=== PATIENT | male | born 1960 | race Caucasian/White ===

== ENCOUNTER → 2017-09-10 | Outpatient (CLI) | payer OTHER ==
[~2017-09-10] MED LIST: CRESTOR20 MG PO; DEXILANT30 MG PO; IOPAMIDOL 370 MG/ML 200 ML INFUS..BTL INJ ONE; SODIUM CHLORIDE 0.9% 50ML 50 ML ONE
--- NOTE | 2017-09-10 18:18 | Diagnostic Imaging Report ---
EXAM: CT Abdomen and Pelvis WITH contrast INDICATION: \[id number] \S\[id number] \S\LT LOWER ABD PAIN; SUSPECT INGUINAL COMPARISON: None. TECHNIQUE: Abdomen and pelvis were scanned utilizing a multidetector helical scanner from the lung base to the pubic symphysis after administration of IV contrast. Coronal and sagittal reformations were obtained. Routine protocol was performed. Scan was performed when during portal venous phase. IV CONTRAST: 100 mL of Isovue-370 ORAL CONTRAST: Water COMPLICATIONS: None RADIATION DOSE: Total DLP: 496.22 mGy*cm Estimated effective dose: (DLP x 0.015 x size factor) mSv CTDIvol has been reviewed. It is below the limits set by the Radiation Protocol Committee (RPC). FINDINGS: LINES and TUBES: None. LOWER THORAX: Unremarkable HEPATOBILIARY: No focal hepatic lesions. No biliary ductal dilation. GALLBLADDER: Cholecystectomy. SPLEEN: No splenomegaly. PANCREAS: No focal masses or ductal dilatation. ADRENALS: 1.4 cm right adrenal nodule. No left adrenal nodule. KIDNEYS/URETERS: Kidneys enhance symmetrically. No hydronephrosis. No cystic or solid mass lesions. No stones. GI TRACT: No abnormal distention, wall thickening, or evidence of bowel obstruction. Appendix is not visualized. PELVIC ORGANS/BLADDER: Unremarkable. LYMPH NODES: No lymphadenopathy. VESSELS: Unremarkable. PERITONEUM / RETROPERITONEUM: No free air or fluid. Small left lower quadrant fat density lesion measuring 1.1 cm with thin high density rim (series 2, image 54 are series 301, image 39). BONES: Unremarkable. SOFT TISSUES: Unremarkable. IMPRESSION: Small left lower quadrant fat density lesion measuring 1.1 cm with thin high density rim, suggestive of Epiploic appendagitis. Signed by: Dr. Rc Trevizo MD on 09/10/2017 6:14 PM
== END ==
LOC: CT 16:27
DX: R10.32 Left lower quadrant pain (principal)
CPT/HCPCS: 74177; Q9967

== ENCOUNTER → 2018-03-22 | Day surgery (SDC) | payer OTHER ==
[~2018-03-22] MED LIST changes: +CRESTOR10 MG PO; +FENTANYL CITRATE/PF 100MCG/2 ML INJ ONE; +HYOSCYAMINE SULFATE 0.5 MG/ML AMP ONE; -IOPAMIDOL 370 MG/ML 200 ML INFUS..BTL INJ ONE; +MIDAZOLAM HCL 2 MG/2 ML VIAL ONE; +NEXIUM OTC PO; +PROPOFOL IV EMULSION 10 MG/ML 50 ML VIAL ONE; -SODIUM CHLORIDE 0.9% 50ML 50 ML ONE
--- NOTE | 2018-03-22 14:44 | Operative Report ---
DATE OF PROCEDURE: March 22, 2018 REFERRING PHYSICIAN: Dr. Iain Chung PROCEDURES PERFORMED 1. Esophagogastroduodenoscopy with biopsies and esophageal dilatation. 2. Colonoscopy with polypectomy and biopsy. INDICATIONS FOR EGD: Dysphagia to solids and heartburn. INDICATIONS FOR COLONOSCOPY: Colorectal cancer screening and sister with colon cancer. MEDICATION: Patient was done under MAC. Please see anesthesiologist's note. PROCEDURE: With the patient in the left lateral decubitus position, the flexible fiberoptic Olympus gastroscope was introduced into the esophagus under direct visualization without any difficulty. A Schatzki's ring was noted in the distal esophagus. That was dilated to size 52-Yi Rodarte. The scope was then advanced with ease into the stomach traversing a small hiatal hernia. Mucosa overlying the antrum and the body revealed some patchy erythema and low-grade edema, and mild to moderate edema. Biopsies were obtained and sent to stain for H. pylori. Hyperplastic appearing polyps were noted in the body of the stomach and some were partially excised with cold biopsy forceps. The pylorus was of normal contour and shape. It was intubated with ease. The scope was advanced all the way to the 2nd portion of the duodenum. The scope was then withdrawn slowly. Mucosa overlying the proximal 2nd portion and the duodenal bulb appeared to be within normal limits. The scope was then withdrawn back into the stomach and retroflexed. The mucosa overlying the fundus and the cardia appeared to be within normal limits. The scope was then straightened out. The stomach was decompressed. The scope was subsequently withdrawn. Patient tolerated the procedure well. IMPRESSION 1. Distal esophagitis, mild. 2. Schatzki's ring, dilated to a size 52-Yi Rodarte. 3. Small hiatal hernia. 4. Gastritis, biopsied. Biopsies sent to stain for Helicobacter pylori. 5. Gastric polyps, some partially excised with the cold biopsy forceps. PLAN: Follow up histology. Initiate Protonix 40 mg 1 p.o. q.a.m. a.c. Patient was then turned around. After adequate lubrication of the anal canal, a flexible fiberoptic Olympus colonoscope was inserted into the rectum with ease and advanced all the way to the cecum. Mucosa overlying the cecum appeared to be within normal limits. There were some scattered diverticular disease noted in the colon. One polyp was snared from the ascending colon. One polyp was snared from the descending colon. There is a mild segmental colitis noted in the descending colon and biopsies were obtained. The sigmoid other than for diverticular disease appeared to be within normal limits. The scope was then retroflexed into the distal rectum and small internal hemorrhoids were noted, none of which was actively bleeding. The scope was then straightened out. It was subsequently withdrawn. Patient tolerated the procedure well. IMPRESSION 1. Ascending colon polyp, snared. 2. Diverticulosis. 3. Descending colon polyp, snared. 4. Mild segmental colitis, descending colon. 5. Internal hemorrhoids, none actively bleeding. PLAN: Follow up histology. Initiate high-fiber and low-fat diet. Initiate high-fiber supplement. Patient will need a followup colonoscopy in 2-3 years. Job#: [id number] RI cc:IAIN CHUNG MD
== END | disposition home or self-care (01) ==
LOC: OR 11:01
PROVIDERS: ATTEND Internal Medicine Gastroenterology
DX: Z12.11 Encounter for screening for malignant neoplasm of colon (principal); D12.2 Benign neoplasm of ascending colon; D12.4 Benign neoplasm of descending colon; K31.7 Polyp of stomach and duodenum; K29.50 Unspecified chronic gastritis without bleeding; K22.2 Esophageal obstruction; K20.9 Esophagitis, unspecified; K21.9 Gastro-esophageal reflux disease without esophagitis; K44.9 Diaphragmatic hernia without obstruction or gangrene; K50.10 Crohn's disease of large intestine without complications; K57.30 Diverticulosis of large intestine without perforation or abscess without bleeding; K64.8 Other hemorrhoids; Z01.810 Encounter for preprocedural cardiovascular examination; Z80.0 Family history of malignant neoplasm of digestive organs
CPT/HCPCS: 43239; 43450; 45380; 45385; 93005; J1980; J2250; 45378; 45384

== ENCOUNTER → 2018-12-27 | Outpatient (CLI) | payer OTHER ==
[~2018-12-27] MED LIST changes: -FENTANYL CITRATE/PF 100MCG/2 ML INJ ONE; -HYOSCYAMINE SULFATE 0.5 MG/ML AMP ONE; -MIDAZOLAM HCL 2 MG/2 ML VIAL ONE; -PROPOFOL IV EMULSION 10 MG/ML 50 ML VIAL ONE
--- NOTE | 2018-12-27 13:15 | Diagnostic Imaging Report ---
Exam: Left ankle series; 3 views History: Pain Comparison: None available Findings: Ankle mortise is intact. There is no fracture identified. Spurring of the calcaneus at the insertion of the plantar fascia and the Achilles tendon is mild. Impression: Mild calcaneal spurring. Signed by: Dr. Wilfrido Alex DO on 12/27/2018 1:12 PM
--- NOTE | 2018-12-27 14:12 | Diagnostic Imaging Report ---
Exam: Left foot series; 4 views History: Pain Comparison: None available Findings: Spurring of the calcaneus is present. The oblique view of the foot suggests the possibility of a lytic lucency involving the neck of the calcaneus. MRI of the foot with and without contrast is suggested for further evaluation. Impression: Possible lytic process involving the calcaneus. Signed by: Dr. Wilfrido Alex DO on 12/27/2018 2:08 PM
== END ==
LOC: RAD 11:21
DX: M25.572 Pain in left ankle and joints of left foot (principal); M77.32 Calcaneal spur, left foot

== ENCOUNTER → 2019-01-10 | Outpatient (CLI) | payer OTHER ==
--- NOTE | 2019-01-10 10:19 | Diagnostic Imaging Report ---
TECHNIQUE: Magnetic resonance imaging of the LEFT foot (hindfoot) was performed WITHOUT injected contrast. HISTORY: Heal pain, lateral side, runner, 6 months, query stress injury COMPARISON: None available. DISCUSSION: Bone: No focal or infiltrative bone marrow replacing abnormality. No acute fracture or osteonecrosis. Multifocal subchondral reactive bone marrow edema, most notably: The lateral aspect of the talar dome and the middle cuneiform adjacent to the second tarsometatarsal joint. Small plantar calcaneal and dorsal calcaneal enthesophytes. Small incidental cyst within the talus adjacent to the sinus tarsi. Joints: No dislocation. No effusion. Focal high-grade cartilage loss at the lateral aspect of the talar dome, 1.3 cm (AP) x 0.2 cm (ML). Diffuse degenerative changes of the tarsometatarsal joints, most notably full-thickness erosions at the cuneiform side of the second tarsometatarsal joint. Soft Tissues: Mild thickening, increased intrasubstance signal and minimal edema of the plantar fascia adjacent to the calcaneal insertion. IMPRESSION: 1. Mild acute on chronic stress-related changes of the plantar fascia. 2. Osteoarthrosis, most notably the tibiotalar and second tarsometatarsal joints with associated subchondral reactive bone marrow edema. Signed by: Dr. Thien Moreno D.O., M.M.M. on 01/10/2019 10:16 AM
== END ==
LOC: MRI 07:47
DX: M79.672 Pain in left foot (principal)

== ENCOUNTER 2019-04-16 12:26 | Observation (INO) | payer OTHER ==
[~2019-04-16] VITALS: Ht 188 cm; Wt 95.3 kg
[2019-04-16] MEDS ORDERED: SODIUM CHLORIDE 0.9% 1000ML 1,000 ML IV STA (13:56)
[2019-04-16] MEDS ORDERED: SODIUM CHLORIDE 0.9% 1000ML 1,000 ML IV SCH ×2 (14:00→15:45)
--- NOTE | 2019-04-16 14:48 | Diagnostic Imaging Report ---
EXAM: CHEST SINGLE (PORTABLE) DATE: 04/16/2019 2:01 PM INDICATION: Hyperlipidemia COMPARISON: None FINDINGS: The trachea is midline. The lungs are symmetrically expanded without evidence for large focal consolidation, pneumothorax, or significant pleural effusion. The cardiomediastinal silhouette and pulmonary vasculature are within normal limits. No acute osseous abnormality is identified. The surrounding soft tissues are unremarkable. IMPRESSION: No acute cardiopulmonary process identified. Signed by: Dr. Blas Elliott MD on 04/16/2019 2:44 PM
[2019-04-16 15:00] LABS: BASOPHILS # (AUTO) 0.1 (0.0-0.1); EOSINOPHILS # (AUTO) 0.3 (0.0-0.4); EOSINOPHILS % 3.5 % (0.0-6.0); HEMATOCRIT 43.7 % (38.2-49.6); HEMOGLOBIN 15.5 g/dL (14.0-18.0); LYMPHOCYTES # (AUTO) 2.7 (1.0-3.2); LYMPHOCYTES % 38.1 % (18.0-39.1); MEAN CORPUSCULAR HGB CONC 35.5 g/dL (31-35); MEAN CORPUSCULAR VOLUME 87.4 fL (81-99); MONOCYTES # (AUTO) 0.7 (0.2-0.8); MONOCYTES % 9.3 % (4.4-11.3); NEUTROPHILS # (AUTO) 3.4 (2.1-6.9); NEUTROPHILS % 47.5 % (38.7-80.0); PLATELET COUNT 242 x10e3/uL (140-360)
[2019-04-16 15:14] LABS: ALANINE AMINOTRANSFERASE 109 IU/L (0-55); ALBUMIN 4.5 g/dL (3.5-5.0); ALBUMIN/GLOBULIN RATIO 1.5 (0.8-2.0); ALKALINE PHOSPHATASE 50 IU/L (40-150); ANION GAP 13.3 mmol/L (8-16); BLOOD UREA NITROGEN 20 mg/dL (7-26); BUN/CREATININE RATIO 20 (6-25); CALCIUM 10.4 mg/dL (8.4-10.2); CARBON DIOXIDE 29 mmol/L (22-29); CHLORIDE 99 mmol/L (98-107); CREATININE, SERUM 1.01 mg/dL (0.72-1.25); EST GLOMERULAR FILTRATION RATE > 60 ML/MIN (60-); GLUCOSE 88 mg/dL (74-118); MAGNESIUM 2.1 MG/DL (1.3-2.1); POTASSIUM 4.3 mmol/L (3.5-5.1); SODIUM 137 mmol/L (136-145)
[2019-04-16 15:21] LABS: CLARITY,URINE CLEAR (CLEAR); COLOR,URINE YELLOW (YELLOW); LEUKOCYTE ESTERASE ,URINE NEGATIVE (NEGATIVE); NITRITE,URINE NEGATIVE (NEGATIVE); PROTEIN,URINE DIPSTICK NEGATIVE (NEGATIVE); URINE UROBILINOGEN 0.2 mg/dL (0.2 - 1)
[2019-04-16 15:22] LABS: BILIRUBIN,URINE NEGATIVE (NEGATIVE); KETONES,URINE NEGATIVE (NEGATIVE)
[2019-04-16 15:33] LABS: CREATINE KINASE 10190 IU/L (30-200)
[2019-04-16] MEDS ORDERED: MORPHINE SULFATE 2 MG/ML SYR 1ML IV PRN (15:45)
[2019-04-16 15:50] LABS: EPITHELIAL CELLS,URINE RARE /LPF
--- NOTE | 2019-04-16 18:41 | History and Physical ---
CHIEF COMPLAINT: Muscle pain and tightness. HISTORY OF PRESENT ILLNESS: This is a 58-year-old white man, who presents to [facility] Emergency Room with a 3-day history of bilateral upper extremity muscle pain and tightness. The patient admits to excessive weightlifting 4 days prior to admission. The patient has also taken rosuvastatin 10 mg daily. Yesterday, the patient had blood work done at his primary care physician's office and was found to have a creatine kinase level of 7975. The patient's BUN and creatinine at that time was 20 and 0.91 respectively. At that time, the patient's AST and ALT were 154 and 69 respectively. Today's blood work in the emergency room revealed a creatine kinase level of 10,190. The patient's BUN and creatinine are 20 and 1.01 respectively. The patient's AST and ALT are 334 and 109 respectively. A 12-lead EKG done in the emergency room was unremarkable. The patient's troponin I was also normal. The patient also underwent a chest x-ray in the emergency room, which did not reveal any acute cardiopulmonary process. The patient actually scheduled for elective right carpal tunnel surgery tomorrow here at this hospital. REVIEW OF SYSTEMS: GENERAL: Weight has been stable. No fever or chills, but does complain of myalgias in his bilateral upper extremities for the last few days. HEENT: No headaches. No vision changes. CARDIOVASCULAR: No chest pain or short of breath. GI: No nausea, vomiting, diarrhea, or constipation. : No dysuria, hematuria, or constipation. Denies any dark tea-colored urine. NEUROMUSCULAR: Complains of muscle tightness and pain in the bilateral biceps, more pronounced on the right. PAST MEDICAL HISTORY: 1. Hyperlipidemia. 2. GERD. 3. Right carpal tunnel syndrome. PAST SURGICAL HISTORY: 1. Bilateral shoulder arthroscopy. 2. Laparoscopic cholecystectomy. 3. Lumbar diskectomy. ALLERGIES: NO KNOWN DRUG ALLERGIES. FAMILY HISTORY: Noncontributory. SOCIAL HISTORY: He is and lives with his . He is retired entry level mechanical engineer. Does not smoke tobacco. Drinks alcohol rarely. PHYSICAL EXAMINATION: GENERAL: He is awake, alert, fluent, fully oriented. He looks younger than stated age. He is healthy, athletic build. Height 6 feet 2 inches, weight 210 pounds, BMI 27. VITAL SIGNS: Blood pressure is 126/86, pulse 56, respiratory rate 16, oxygen saturation 100% on room air, temperature 96.6. INTEGUMENT: Skin is warm and dry. No pallor, jaundice, or diaphoresis. HEENT: Moist mucous membranes. NECK: Supple. CARDIOVASCULAR: Bradycardic rate and regular rhythm. LUNGS: No rales, no rhonchi. ABDOMEN: Benign. EXTREMITIES: No muscle tightness or spasms appreciated. NEUROLOGICAL: Intact. DIAGNOSES: 1. Rhabdomyolysis. 2. Statin induced myositis. 3. Elevated hepatic transaminases secondary to rhabdomyolysis and statin use. PLAN: 1. We will stop statin therapy. 2. Intravenous fluids. 3. Monitor renal function. 4. Monitor electrolytes, particularly potassium level. 5. Monitor serum creatine kinase levels. I spent 40 minutes in the care of the patient. MD MARLIN Castillo/HELENA /[id number] MTDD
[2019-04-16] MEDS: FAMOTIDINE 20 MG/2 ML VIAL IV SCH (19:26)
[2019-04-16] MEDS: SODIUM CHLORIDE 0.9% 1000ML 1,000 ML IV SCH ×2 (19:28→23:27)
[2019-04-16 21:05] VITALS: BP 142/81
[2019-04-16 21:30] VITALS: BP 142/81
[2019-04-16 21:59] LABS: ALANINE AMINOTRANSFERASE 101 IU/L (0-55); ALBUMIN/GLOBULIN RATIO 1.5 (0.8-2.0); ALKALINE PHOSPHATASE 42 IU/L (40-150); BLOOD UREA NITROGEN 17 mg/dL (7-26); BUN/CREATININE RATIO 20 (6-25); CALCIUM 9.5 mg/dL (8.4-10.2); CARBON DIOXIDE 28 mmol/L (22-29); CHLORIDE 104 mmol/L (98-107); CREATINE KINASE 7872 IU/L (30-200); CREATININE, SERUM 0.85 mg/dL (0.72-1.25); EST GLOMERULAR FILTRATION RATE > 60 ML/MIN (60-); GLUCOSE 87 mg/dL (74-118); SODIUM 138 mmol/L (136-145)
[2019-04-17] VITALS: BP 118/77
[2019-04-17] MEDS ORDERED: PANTOPRAZOLE SO40 MG PO (00:30)
[2019-04-17] MEDS: FAMOTIDINE 20 MG/2 ML VIAL IV SCH (02:46)
[2019-04-17] MEDS: SODIUM CHLORIDE 0.9% 1000ML 1,000 ML IV SCH (02:46)
[2019-04-17 04:00] VITALS: BP 110/60
[2019-04-17 06:05] LABS: BASOPHILS # (AUTO) 0.1 (0.0-0.1); EOSINOPHILS # (AUTO) 0.4 (0.0-0.4); EOSINOPHILS % 4.5 % (0.0-6.0); HEMATOCRIT 40.5 % (38.2-49.6); HEMOGLOBIN 13.5 g/dL (14.0-18.0); LYMPHOCYTES % 38.1 % (18.0-39.1); MEAN CORPUSCULAR HEMOGLOBIN 30.1 pg (28-32); MEAN CORPUSCULAR HGB CONC 33.3 g/dL (31-35); MEAN CORPUSCULAR VOLUME 90.4 fL (81-99); MONOCYTES # (AUTO) 0.6 (0.2-0.8); MONOCYTES % 7.8 % (4.4-11.3); NEUTROPHILS # (AUTO) 3.8 (2.1-6.9); NEUTROPHILS % 48.2 % (38.7-80.0); PLATELET COUNT 218 x10e3/uL (140-360); RED BLOOD COUNT 4.48 x10e6/uL (4.3-5.7); RED CELL DISTRIBUTION WIDTH 13.2 % (11.7-14.4)
[2019-04-17 07:11] LABS: ALANINE AMINOTRANSFERASE 94 IU/L (0-55); ALBUMIN 3.7 g/dL (3.5-5.0); ALBUMIN/GLOBULIN RATIO 1.5 (0.8-2.0); ALKALINE PHOSPHATASE 43 IU/L (40-150); ANION GAP 12.9 mmol/L (8-16); BLOOD UREA NITROGEN 17 mg/dL (7-26); BUN/CREATININE RATIO 20 (6-25); CALCIUM 9.3 mg/dL (8.4-10.2); CARBON DIOXIDE 26 mmol/L (22-29); CHLORIDE 105 mmol/L (98-107); CHOL/HDL RATIO 4.3 (3.9-4.7); CHOLESTEROL 172 MD/DL (0-199); CREATININE, SERUM 0.86 mg/dL (0.72-1.25); EST GLOMERULAR FILTRATION RATE > 60 ML/MIN (60-); GLUCOSE 98 mg/dL (74-118); HDL CHOLESTEROL 40 MG/DL (40-60); LDL CHOLESTEROL 92 MG/DL (60-130); PHOSPHORUS 3.4 MG/DL (2.3-4.7); POTASSIUM 3.9 mmol/L (3.5-5.1); SODIUM 140 mmol/L (136-145); TRIGLYCERIDES 199 MG/DL (0-149)
[2019-04-17] MEDS ORDERED: ASPIRIN 81 MG ENTERIC COATED PO SCH (09:00)
[2019-04-17 09:44] VITALS: BP 131/69
--- NOTE | 2019-04-17 09:54 | Discharge Summary ---
ADMITTING DIAGNOSES: 1. Rhabdomyolysis. 2. Acute renal insufficiency, mild. 3. Elevated hepatic transaminases secondary to rhabdomyolysis and statin therapy. DISCHARGE DIAGNOSES: 1. Rhabdomyolysis, resolving. 2. Acute renal insufficiency, resolved. 3. Elevated hepatic transaminases secondary to statin use and rhabdomyolysis, resolving. HOSPITAL COURSE: This is a 58-year-old white man, who was initially admitted to [facility] with a diagnosis of rhabdomyolysis. On admission, he was also found to have mild acute renal insufficiency as well as elevated hepatic transaminases. It was felt that the patient's elevated hepatic transaminases were secondary to his rhabdomyolysis as well as statin therapy. The patient improved clinically with intravenous fluids. On admission, the patient's creatine kinase was 10,190. On day of discharge, it was 6485. The patient was adamant about being discharged home. The patient states he was not experiencing any muscle pain or tightness on day of discharge. On admission, the patient's BUN and creatinine were 20 and 1.01 respectively. On day of discharge, the patient's BUN and creatinine were 17 and 0.86 respectively. On day of discharge, the patient's potassium is 3.9. The patient's brief hospitalization was unremarkable. CONDITION ON DISCHARGE: Stable. DISCHARGE MEDICATIONS: The patient was instructed to stop Rosuvastatin in the form of Crestor, but he can continue pantoprazole 40 mg daily. FOLLOWUP INSTRUCTIONS: 1. The patient was discharged home today and was instructed to stay well hydrated. 2. He was instructed to inform our office if he experiences any recurrence of muscle pain or tightness. 3. Repeat serum creatine kinase and comprehensive metabolic profile will be checked tomorrow or Sunday, April 18, 2019. MD MARLIN Castillo/HELENA /[id number]
[2019-04-17 09:58] VITALS: BP 131/69
[2019-04-17 11:00] LABS: CREATINE KINASE MB 9.6 ng/mL (0-5.0)
== END 2019-04-17 10:27 | disposition home or self-care (01) ==
LOC: ER 12:26 → INTOOBSV 15:42 → ERHOLD 15:42 → MED/SURG 21:05
PROVIDERS: ADMIT Internal Medicine; ATTEND Internal Medicine
DX: M62.82 Rhabdomyolysis (principal); E78.5 Hyperlipidemia, unspecified; K21.9 Gastro-esophageal reflux disease without esophagitis; G56.03 Carpal tunnel syndrome, bilateral upper limbs; M60.80 Other myositis, unspecified site; T46.6X5A Adverse effect of antihyperlipidemic and antiarteriosclerotic drugs, initial encounter
CPT/HCPCS: 36415 ×2; 71045; 80053 ×2; 80061; 81001; 82550 ×2; 82553 ×2; 83735 ×2; 84100; 84484 ×2; 85025 ×2; 93005; 99285; G0378 ×2; J7030 ×2

== ENCOUNTER → 2019-05-01 | Day surgery (SDC) | payer OTHER ==
[~2019-05-01] MED LIST changes: +ACETAMINOPHEN 1000 MG/100 ML IV ONE; +BUPIVACAINE HCL 0.5% INJ 30 ML VIAL INJ ONE; +CEFAZOLIN SOD 1 GM VIAL ONE; +CEFAZOLIN SOD 1 GM/NS 50ML 50 ML IV ONE; +FENTANYL CITRATE/PF 100MCG/2 ML INJ ONE; +HYDROMORPHONE 2MG/ML 2 MG/ML ML ONE; +KETOROLAC TROMETHAMINE 30 MG/ML VIAL ONE; +LIDOCAINE HCL 2% LOCAL INJ 5 ML SDV VIAL INJ ONE; +MIDAZOLAM HCL 2 MG/2 ML VIAL ONE; +MUPIROCIN 2% OINT 22 GM TUBE ONE; +ONDANSETRON HCL INJ 2MG/ML 2ML 2 MG/ML VIAL ONE; +PANTOPRAZOLE SO40 MG PO; +PROPOFOL IV EMULSION 10 MG/ML 20 ML VIAL ONE; +SEVOFLURANE INHAL SOLN 250 ML PEN BTL ONE
[2019-05-01 08:45] VITALS: BP 133/89
--- NOTE | 2019-05-01 17:35 | Operative Report ---
DATE OF PROCEDURE: 05/01/2019 SURGEON: Ed Davey MD PREOPERATIVE DIAGNOSES: Right and left hand carpal tunnel syndrome. POSTOPERATIVE DIAGNOSES: 1. Right and left hand carpal tunnel syndrome. 2. Flexor tenosynovitis, right and left wrist. PROCEDURE: 1. Bilateral open carpal tunnel release. 2. Flexor tenosynovectomy, right and left wrist. ANESTHESIA: General. HISTORY: The patient is a 58-year-old with EMG-proven right hand and a left hand carpal tunnel syndrome. Risks, benefits and alternatives of treatment were discussed with the patient. The patient is prepared to undergo the procedure as outlined. DESCRIPTION OF PROCEDURE: The patient was brought to the operating theater. After the induction of adequate general inhalation anesthesia, the patient was prepped and draped in the supine position. A time out was performed by the entire operating room team. A 2.5 cm incision was marked out in the intrathenar space. The right and left upper extremities were exsanguinated, and a tourniquet was inflated to a pressure of 250 mmHg. The incision was made through the skin and subcutaneous tissues and all venous tributaries were controlled with bipolar cautery. The incision was deepened through the palmar fascia until the transverse carpal ligament was identified. The ligament was sharply sectioned, taking care to protect and preserve the median nerve underlying it. After the complete width of the ligament had been transected, the distal volar forearm fascia was divided under direct view. Proliferative flexor tenosynovium was noticed to encompass the median nerve and this was radically excised. After performing this maneuver, the nerve was noted to lie adequately decompressed. The wound was copiously irrigated with bacteriostatic saline, closed with 5-0 nylon in an interrupted horizontal mattress fashion. A Marcaine field block was performed at the operative site. Tourniquet was deflated. All of the fingers pinked up nicely and a sterile bulking conforming bandage was applied to the hand and the wrist. A fiberglass splint was fashioned to maintain the wrist in a modest amount of extension. This was held in place with a loosely wrapped Luis Angel wrap. The patient tolerated the procedure well and was brought to the recovery room in satisfactory condition and discharged with a postoperative instruction sheet as well as a followup appointment. MD OLGA Call/MODL /[id number]
== END | disposition home or self-care (01) ==
LOC: OR 05:20
PROVIDERS: ATTEND Plastic Surgery
DX: G56.01 Carpal tunnel syndrome, right upper limb (principal); G56.02 Carpal tunnel syndrome, left upper limb; M65.832 Other synovitis and tenosynovitis, left forearm; M65.831 Other synovitis and tenosynovitis, right forearm; K21.9 Gastro-esophageal reflux disease without esophagitis; K44.9 Diaphragmatic hernia without obstruction or gangrene; E78.5 Hyperlipidemia, unspecified; R00.1 Bradycardia, unspecified; Z01.810 Encounter for preprocedural cardiovascular examination
CPT/HCPCS: 25115; 93005; J0131; J0690 ×2; J1170; J1885; J2001; J2250; J2405; J2704; J3010

== ENCOUNTER → 2019-05-31 | Day surgery (SDC) | payer OTHER ==
[~2019-05-31] MED LIST changes: -ACETAMINOPHEN 1000 MG/100 ML IV ONE; -BUPIVACAINE HCL 0.5% INJ 30 ML VIAL INJ ONE; -CEFAZOLIN SOD 1 GM VIAL ONE; -CEFAZOLIN SOD 1 GM/NS 50ML 50 ML IV ONE; -HYDROMORPHONE 2MG/ML 2 MG/ML ML ONE; -KETOROLAC TROMETHAMINE 30 MG/ML VIAL ONE; +METOCLOPRAMIDE HCL 10 MG/2ML VIAL ONE; -MUPIROCIN 2% OINT 22 GM TUBE ONE; -ONDANSETRON HCL INJ 2MG/ML 2ML 2 MG/ML VIAL ONE; -PROPOFOL IV EMULSION 10 MG/ML 20 ML VIAL ONE; +PROPOFOL IV EMULSION 10 MG/ML 50 ML VIAL ONE; -SEVOFLURANE INHAL SOLN 250 ML PEN BTL ONE; +ZETIA10 MG PO
--- NOTE | 2019-05-31 16:26 | Operative Report ---
DATE OF PROCEDURE: 05/31/2019 SURGEON: Joby De La Rosa MD PROCEDURE: EGD with biopsies. INDICATIONS FOR EGD: Acid reflux. MEDICATIONS: The patient was done under MAC, please see anesthesiologist's note. PROCEDURE IN DETAIL: With the patient in left lateral decubitus position, a flexible fiberoptic Olympus gastroscope was introduced into the esophagus under direct visualization without any difficulty. There was some patchy erythema noted in distal esophagus. The scope was then advanced with ease into the stomach traversing a moderate-sized hiatal hernia. The mucosa overlying the antrum and the body revealed some patchy erythema and [id number] edema, and biopsies were obtained and sent to stain for H. pylori. Some scattered hyperplastic-appearing polyps were noted in the body and some were partially excised with the cold biopsy forceps. The pylorus was of normal contour and shape, it was intubated with ease and the scope was advanced all the way to the second portion of the duodenum. A cluster of minute nodule was noted in the proximal second portion and that was biopsied. Also, biopsies were obtained from the second portion and duodenal bulb to rule out sprue. The scope was then withdrawn back into the stomach and retroflexed, and mucosa overlying the fundus and the cardia appeared to be within normal limits. The previously described hiatal hernia was also noted in the retroflexed position. The scope was then straightened out, it was subsequently withdrawn, and the patient tolerated the procedure well. IMPRESSION: 1. Distal esophagitis, mild. 2. Moderate-sized hiatal hernia. 3. Gastritis, biopsied, biopsies sent to stain for Helicobacter pylori. 4. Gastric polyps, hyperplastic-appearing, body, some partially excised with the cold biopsy forceps. 5. Cluster of minute nodule proximal second portion of the duodenum, biopsied. 6. Rule out sprue. PLAN: Follow up histology. Continue Protonix 40 mg 1 p.o. before meals b.i.d. We will obtain ultrasound of the gallbladder and HIDA scan if not done. If HIDA scan as well as the ultrasound of the gallbladder turned out to be unremarkable and the patient continues with his reflux symptoms, we will consider a General Surgical referral regarding hiatal hernia repair. Joby De La Rosa MD [facility] [place]/MODL /[id number] cc: Boo De La Rosa MD
== END | disposition home or self-care (01) ==
LOC: OR 12:43
PROVIDERS: ATTEND Internal Medicine Gastroenterology
DX: K29.60 Other gastritis without bleeding (principal); C82.93 Follicular lymphoma, unspecified, intra-abdominal lymph nodes; K63.5 Polyp of colon; K31.7 Polyp of stomach and duodenum; K44.9 Diaphragmatic hernia without obstruction or gangrene; K20.9 Esophagitis, unspecified; K31.89 Other diseases of stomach and duodenum; K57.30 Diverticulosis of large intestine without perforation or abscess without bleeding; F41.9 Anxiety disorder, unspecified; Z68.27 Body mass index [BMI] 27.0-27.9, adult; Z80.0 Family history of malignant neoplasm of digestive organs
CPT/HCPCS: 43239; J2001; J2250; J2704; J2765; J3010

== ENCOUNTER → 2021-01-21 | Outpatient (CLI) | payer OTHER ==
[~2021-01-21] MED LIST changes: -FENTANYL CITRATE/PF 100MCG/2 ML INJ ONE; -LIDOCAINE HCL 2% LOCAL INJ 5 ML SDV VIAL INJ ONE; -METOCLOPRAMIDE HCL 10 MG/2ML VIAL ONE; -MIDAZOLAM HCL 2 MG/2 ML VIAL ONE; -PROPOFOL IV EMULSION 10 MG/ML 50 ML VIAL ONE
== END ==
LOC: RAD 12:22
DX: M25.551 Pain in right hip (principal)

== ENCOUNTER → 2022-03-16 | Outpatient (CLI) | payer OTHER | LOC: RAD 12:58 | DX: M54.50 Low back pain, unspecified (principal) | CPT/HCPCS: 72110 ==